=== PATIENT | male | born 1965 | race Hispanic/Latino ===

== ENCOUNTER 2019-04-16 10:39 | Inpatient (IN) | payer OTHER ==
[~2019-04-16] VITALS: Ht 165.1 cm; Wt 79.8 kg
[2019-04-16] MEDS ORDERED: SODIUM CHLORIDE 0.9% 1000ML 1,000 ML IV ONE ×2 (11:06→16:02)
[2019-04-16] MEDS ORDERED: THIAMINE HCL 100 MG/ML 2ML VIAL ONE (11:18)
[2019-04-16 11:28] LABS: BASOPHILS % (AUTO) 0.2 % (0.0-5.0); HEMATOCRIT 44.9 % (42-54); LYMPHOCYTES % (AUTO) 2.9 % (21.0-51.0); MEAN CORPUSCULAR HEMOGLOBIN 34.2 pg (27.0-33.0); MEAN CORPUSCULAR HGB CONC 34.5 g/dL (32.0-36.0); MONOCYTES % (AUTO) 15.7 % (3.0-13.0); NEUTROPHILS % (AUTO) 81.2 % (40.0-77.0); PLATELET COUNT (AUTO) 111 K/uL (130-400); RED BLOOD CELL COUNT(AUTO) 4.54 MIL/uL (4.50-6.20); RED CELL DISTRIBUTION WIDTH 13.7 % (11.0-15.5); WHITE BLOOD COUNT (AUTO) 12.3 K/uL (4.8-10.8)
[2019-04-16 11:52] LABS: ALANINE AMINOTRANSFERASE 71 U/L (12-78); ALBUMIN 3.5 g/dL (3.5-5.0); ALCOHOL, BLOOD < 3 mg/dL (0-10); ASPARTATE AMINOTRANSFERASE 92 U/L (10-37); CARBON DIOXIDE 19 mmol/L (21-32); CREATININE 6.2 mg/dL (0.5-1.5); GLOMERULAR FILTR. RATE CALC 10 mL/min (>60); GLUCOSE,RANDOM 169 mg/dL (70-105); POTASSIUM 3.2 mmol/L (3.5-5.1); SODIUM SERUM 123 mmol/L (136-145); TOTAL PROTEIN, SERUM 8.3 g/dL (6.0-8.3); UREA NITROGEN, BLOOD 70 mg/dL (7-18)
[2019-04-16 11:54] LABS: CHLORIDE 75 mmol/L (101-111); CREATINE KINASE, TOTAL 737 U/L (21-232)
[2019-04-16 12:57] LABS: APPEARANCE,URINE SL CLOUDY (CLEAR); BILIRUBIN,URINE MODERATE (NEGATIVE); COLOR,URINE YELLOW (YELLOW); GLUCOSE, URINE (UA) NEGATIVE (NEGATIVE); KETONES,URINE 15 mg/dL (NEGATIVE); LEUKOCYTE ESTERASE ,URINE NEGATIVE (NEGATIVE); NITRATE,URINE NEGATIVE (NEGATIVE); OCCULT BLOOD,URINE LARGE (NEGATIVE); PH,URINE 5.5 (5.0-8.0); PROTEIN,URINE 100 mg/dL (NEGATIVE)
[2019-04-16] MEDS ORDERED: POTASSIUM BICARB/CIT AC 25 MEQ TABLET.EFF ONE (12:57)
[2019-04-16 13:05] LABS: AMPHET/METH SCREEN,URINE NEGATIVE (NEGATIVE); BARBITURATE SCREEN, URINE NEGATIVE (NEGATIVE); BENZODIAZEPINES SCREEN,URINE NEGATIVE (NEGATIVE); CANNABINOID SCREEN,URINE NEGATIVE (NEGATIVE); COCAINE SCREEN,URINE NEGATIVE (NEGATIVE); OPIATE SCREEN,URINE NEGATIVE (NEGATIVE); PHENCYCLIDINE SCREEN,URINE NEGATIVE (NEGATIVE)
[2019-04-16 13:19] LABS: BACTERIA,URINE Moderate /HPF (None Seen); MUCUS,URINE Moderate LPF (None Seen); SQUAMOUS EPITHELIAL CELL,UR Few /HPF (0-2)
[2019-04-16] MEDS ORDERED: SODIUM CHLORIDE 0.9% 1000ML 1,000 ML IV SCH (14:16)
[2019-04-16] MEDS ORDERED: ACETAMINOPHEN 325 MG TAB PO PRN ×2 (14:30)
[2019-04-16] MEDS ORDERED: HYDRALAZINE HCL 20 MG/ML VIAL IV PRN (14:30)
[2019-04-16] MEDS ORDERED: ONDANSETRON HCL 4 MG/2 ML VIAL IV PRN (14:30)
[2019-04-16] MEDS ORDERED: PHARMACY COMMUNICATION MISC PRN (14:30)
[2019-04-16 14:53] LABS: MAGNESIUM 2.6 mg/dL (1.80-2.40); PHOSPHORUS 7.6 mg/dL (2.5-4.9)
[2019-04-16] MEDS ORDERED: POTASSIUM CHLORIDE 10MEQ/100ML 100 ML IV PRN (18:00)
[2019-04-16] MEDS ORDERED: POTASSIUM CHLORIDE 10% ELIXIR 20 MEQ/15 ML UDCUP PO PRN (18:00)
[2019-04-16] MEDS ORDERED: POTASSIUM CHLORIDE 20 MEQ ERTAB PO PRN (18:00)
[2019-04-16] MEDS ORDERED: LIDOCAINE HCL-MPF 1% 2ML VIAL IVP PRN (18:00)
[2019-04-16] MEDS ORDERED: POTASSIUM CHLORIDE 20 MEQ ERTAB PO ONE (18:15)
[2019-04-16] MEDS ORDERED: FAMOTIDINE/PF 20 MG/2 ML VIAL IV ONE (20:16)
[2019-04-16] MEDS ORDERED: POTASSIUM CHLORIDE 10% ELIXIR 20 MEQ/15 ML UDCUP ONE ×2 (20:16→23:06)
[2019-04-16] MEDS ORDERED: ONDANSETRON HCL 4 MG/2 ML VIAL ONE (20:25)
[2019-04-16 22:16] LABS: INR 1.17 (0.85-1.15); PROTHROMBIN TIME 12.2 SEC (9.6-11.6)
[2019-04-17] VITALS (7 sets, daily range): BP systolic 100–128; BP diastolic 70–96
[2019-04-17] MEDS: CHLORDIAZEPOXIDE HCL 25 MG CAP PO PRN (01:30)
[2019-04-17] MEDS: LORAZEPAM 2 MG/ML 1 ML VIAL IVP PRN ×3 (01:37→10:52)
--- NOTE | 2019-04-17 01:37 | NUR ---
UNABLE TO SWALLOW PILLS ADMINISTERED LIBRIUM PER MAR. PATIENT CHEWING ON PILL, UNABLE TO SWALLOW PILL. HAD PATIENT SPIT PILL OUT, ADMINISTERED ATIVAN PER MAR. REINFORCED SAFETY MEASURES TO USE CALL LIGHT AND NOT TO GET OUT OF BED. BED ALARM ON, BED LOCKED IN LOWEST POSITION, CALL LIGHT WITHIN REACH.
[2019-04-17 05:51] LABS: BASOPHILS % (AUTO) 0.2 % (0.0-5.0); EOSINOPHILS % (AUTO) 0.1 % (0.0-8.0); HEMATOCRIT 38.2 % (42-54); LYMPHOCYTES % (AUTO) 2.1 % (21.0-51.0); MEAN CORPUSCULAR HEMOGLOBIN 35.2 pg (27.0-33.0); MEAN CORPUSCULAR HGB CONC 35.2 g/dL (32.0-36.0); MONOCYTES % (AUTO) 17.2 % (3.0-13.0); NEUTROPHILS % (AUTO) 80.4 % (40.0-77.0); PLATELET COUNT (AUTO) 98 K/uL (130-400); RED BLOOD CELL COUNT(AUTO) 3.82 MIL/uL (4.50-6.20); RED CELL DISTRIBUTION WIDTH 13.3 % (11.0-15.5); WHITE BLOOD COUNT (AUTO) 10.2 K/uL (4.8-10.8)
[2019-04-17 06:04] LABS: CREATININE 1.9 mg/dL (0.5-1.5); MAGNESIUM 2.2 mg/dL (1.80-2.40); PHOSPHORUS 2.7 mg/dL (2.5-4.9); POTASSIUM 3.2 mmol/L (3.5-5.1)
--- NOTE | 2019-04-17 07:20 | NUR ---
PATIENT OBSERVED VERY LETHARGIC DURING BEDSIDE REPORTING, UNABLE TO ANSWER QUESTIONS AT THIS TIME. REPORT RECEIVED THAT THE PATIENT HAD EMESIS EPISODES EARLIER. CURRENTLY ON ALCOHOL WITHDRAWAL. WILL CONTINUE TO MONITOR.
[2019-04-17] MEDS: THIAMINE HCL 100 MG TABLET PO SCH (09:30)
[2019-04-17] MEDS: FOLIC ACID 1 MG TABLET PO SCH (09:30)
[2019-04-17] MEDS: FAMOTIDINE/PF 20 MG/2 ML VIAL IV SCH (10:23)
--- NOTE | 2019-04-17 10:55 | NUR ---
PATIENT HAD ANOTHER EMESIS EPISODE AND WAS COVERED WITH ZOFRAN AND WAS STILL VOMITING WHILE RECEIVING THE MEDICATION. DR ORDONEZ WAS MADE AWARE OF THE PATIENT CURRENT STATUS. AM PO MEDS WERE HELD AND WAS NOTIFIED, CURRENTLY ON BANANA BAG. ADDED POTASSIUM TO THE IVF TO COVER LOW POTASSIUM.
--- NOTE | 2019-04-17 10:56 | NUR ---
PATIENT WAS MEDICATED WITH ATIVAN FOR ALCOHOL WITHDRAWAL. HALLUCINATING WITH TREMORS PRESENT; ATTEMPTING TO GET UP.
[2019-04-17] MEDS: THIAMINE HCL 100 MG, FOLIC ACID 1 MG, M.V.I. IV [ADULT] 10 ML in SODIUM CHLORIDE 0.9% 1... IV SCH ×2 (11:38→14:30)
[2019-04-17 12:07] LABS: ABG BASE EXCESS -1.5 mmol/L (-2.0-3.0); ABG OXYGEN SATURATION 97.5 % (95.0-99.0); ABG PCO2 30 mmHg (35-48)
--- NOTE | 2019-04-17 12:54 | NUR ---
Nutrition intervention: Nutrition consult as trigger. Pt admitted for alcohol intoxication, severe hyponatremia. Pt currently on full liquid diet with no po intake. As per ELLA Mazariegos, pt lethargic. Pt asleep at time of RD visit. No nutrition feedback obtained by pt. Will continue to monitor. Recommendations: Continue thiamin and folic acid When medically feasible, advance diet therapy to Soft diet therapy. Monitor po intake and tolerance. Consult RD as nutrition concerns arise. Addendum: 04/17/19 at [address] RD Amended: Links added.
--- NOTE | 2019-04-17 12:55 | NUR ---
RETURNED FROM CT SCAN CALM WITH EYES CLOSED.
[2019-04-17] MEDS: NS-20 MEQ KCL 1000ML 1,000 ML IV SCH (13:05)
--- NOTE | 2019-04-17 16:00 | NUR ---
INITIAL MET W PATIENT , AUNT AND COUSIN AT BEDSIDE, COUSIN SEBASTIÁN PATE SUPPLIED MOST INFO, PT IS CONSULTS, COUSIN SUPPLIED THAT PT LIVES ALONE, MOTHER SOME YEARS AGO, LIVES IN HOUSE, HAS CARE HOME CHECK, DRINKS HEAVILY, STEEP DECLINE IN LAST FEW YEARS NO PHONE,LOST ID, HOME IN [place], WHEN QUESTIONED PT STATES WAS PT OF [facility] AND HAD INSURANCE. PT DID REMEMBER HIS SOCIAL SECURITY NUMBER CALL TO [facility] PENDING TO CHECK I DC PLAN UNDETERMINED Addendum: 04/18/19 at 1548 by HELENE DE JESUS RN CM Amended: Links added.
--- NOTE | 2019-04-17 17:05 | NUR ---
PATIENT'S COUSIN CAME IN TO VISIT HIM AND PROVIDED HIS CONTACT INFORMATION. PATIENT HAD LITTLE IMPROVEMENT AND WAS ABLE TO STATE HIS NAME ONLY.
[2019-04-17 17:30] LABS: ALBUMIN 2.8 g/dL (3.5-5.0); BILIRUBIN,TOTAL 3.7 mg/dL (0.2-1.0); CREATININE 1.2 mg/dL (0.5-1.5); POTASSIUM 3.1 mmol/L (3.5-5.1); TOTAL PROTEIN, SERUM 6.8 g/dL (6.0-8.3)
[2019-04-17 18:29] LABS: CREATININE,URINE RANDOM 76 mg/dL (30-135); SODIUM,URINE RANDOM < 15 mmol/l (40-220)
[2019-04-18] VITALS (11 sets, daily range): BP systolic 0–147; BP diastolic 0–97
[2019-04-18] MEDS: NS-20 MEQ KCL 1000ML 1,000 ML IV SCH ×2 (01:50→01:51)
[2019-04-18 04:49] LABS: BASOPHILS % (AUTO) 0.3 % (0.0-5.0); EOSINOPHILS % (AUTO) 0.1 % (0.0-8.0); HEMATOCRIT 38.5 % (42-54); LYMPHOCYTES % (AUTO) 5.3 % (21.0-51.0); MEAN CORPUSCULAR HEMOGLOBIN 35.1 pg (27.0-33.0); MEAN CORPUSCULAR HGB CONC 34.5 g/dL (32.0-36.0); MEAN CORPUSCULAR VOLUME 101.7 fL (79-99); MONOCYTES % (AUTO) 27.8 % (3.0-13.0); NEUTROPHILS % (AUTO) 66.5 % (40.0-77.0); PLATELET COUNT (AUTO) 121 K/uL (130-400); RED BLOOD CELL COUNT(AUTO) 3.79 MIL/uL (4.50-6.20); RED CELL DISTRIBUTION WIDTH 13.4 % (11.0-15.5); WHITE BLOOD COUNT (AUTO) 9.7 K/uL (4.8-10.8)
[2019-04-18 05:00] LABS: INR 1.13 (0.85-1.15); PARTIAL THROMBOPLASTIN TIME 33.2 SEC (26.3-35.5); PROTHROMBIN TIME 11.8 SEC (9.6-11.6)
[2019-04-18 05:16] LABS: ALBUMIN 2.6 g/dL (3.5-5.0); BILIRUBIN,DIRECT 2.3 mg/dL (0.0-0.3); BILIRUBIN,TOTAL 3.4 mg/dL (0.2-1.0); MAGNESIUM 2.4 mg/dL (1.80-2.40); PHOSPHORUS 1.5 mg/dL (2.5-4.9); TOTAL PROTEIN, SERUM 6.6 g/dL (6.0-8.3)
[2019-04-18 05:26] LABS: POTASSIUM 2.9 mmol/L (3.5-5.1)
[2019-04-18 07:14] LABS: HEPATITIS Bs ANTIGEN SCREEN P Negative (Negative)
[2019-04-18] MEDS ORDERED: THIAMINE HCL 100 MG TABLET PO SCH (09:00)
[2019-04-18] MEDS ORDERED: FOLIC ACID 1 MG TABLET PO SCH (09:00)
[2019-04-18] MEDS: THIAMINE HCL 100 MG TABLET PO SCH (09:15)
[2019-04-18] MEDS: FOLIC ACID 1 MG TABLET PO SCH (09:16)
[2019-04-18] MEDS ORDERED: POTASSIUM PHOS 15 mMOL+NS250ML 250 ML IV PRN (10:00)
[2019-04-18] MEDS: FAMOTIDINE/PF 20 MG/2 ML VIAL IV SCH (10:09)
[2019-04-18] MEDS: CHLORDIAZEPOXIDE HCL 25 MG CAP PO PRN (10:09)
[2019-04-18] MEDS ORDERED: LIDOCAINE HCL-MPF 1% 2ML VIAL IVP PRN ×2 (13:45→15:45)
[2019-04-18] MEDS ORDERED: POTASSIUM CHLORIDE 10% ELIXIR 20 MEQ/15 ML UDCUP PO PRN (13:45)
[2019-04-18] MEDS ORDERED: POTASSIUM CHLORIDE 20 MEQ ERTAB PO PRN (13:45)
[2019-04-18] MEDS ORDERED: POTASSIUM CHLORIDE 20MEQ/100ML 100 ML IV PRN (13:45)
[2019-04-18] MEDS ORDERED: PHARMACY COMMUNICATION MISC SCH (14:30)
--- NOTE | 2019-04-18 15:00 | NUR ---
ATTEMPT TO REACH FAMILY MEMBERS CALL TO SEBASTIÁN GOLDMAN AT 1440 [phone] MARCO A SCALES TO FAYE PERERA SISTERAT [phone] LEFT VOICE MAIL, PHONE OFF SEBASTIÁN PATE PICKED UP, HE IS AT WORK, ADVISED HIM THAT HIS COUSIN HAS TAKEN A TURN FOR THE WORSE, SPOKE TO DR. LLOYD WHO EXPLAINED THAT WE ARE CODING PATIENT HE STATES HE CAN BE THERE AFTER 5 PM CALL BACK TO JONES AT 1450, DR. Ibarra ASKED ABOUT DNR, COUSIN DECLINED, CHRISTINA EXPLAINED THAT DAWOOD SHELBY IS IN [place], THAT IS WHY THE PHONE IS OFF. HE WILL BE COMING TO [facility] WHEN HE GETS OUT OF WORK Addendum: 04/18/19 at 1540 by HELENE DE JESUS RN CM Amended: Links added.
[2019-04-18 15:08] LABS: ABG BASE EXCESS -18.6 mmol/L (-2.0-3.0); ABG HCO3 15.1 mmol/L (21.0-28.0); ABG OXYGEN SATURATION 50.5 % (95.0-99.0); ABG PCO2 76 mmHg (35-48)
[2019-04-18] MEDS ORDERED: SODIUM CHLORIDE 0.9% 1000ML 1,000 ML IV ONE (15:12)
--- NOTE | 2019-04-18 15:32 | NUR ---
TRANSFER TO ICU Patient was seen at 1315 for CIWA assessment. Subsequently a code was called S/T patient with telemetry changes. Coded and transfer to ICU.
[2019-04-18 15:33] LABS: BILIRUBIN,TOTAL 2.5 mg/dL (0.2-1.0); CREATININE 1.6 mg/dL (0.5-1.5); TOTAL PROTEIN, SERUM 5.5 g/dL (6.0-8.3)
[2019-04-18 15:48] LABS: BASOPHILS % (AUTO) 0.4 % (0.0-5.0); EOSINOPHILS % (AUTO) 0.3 % (0.0-8.0); HEMATOCRIT 40.9 % (42-54); LYMPHOCYTES % (AUTO) 13.7 % (21.0-51.0); MEAN CORPUSCULAR HEMOGLOBIN 34.5 pg (27.0-33.0); MEAN CORPUSCULAR HGB CONC 31.7 g/dL (32.0-36.0); MEAN CORPUSCULAR VOLUME 108.9 fL (79-99); MONOCYTES % (AUTO) 11.3 % (3.0-13.0); NEUTROPHILS % (AUTO) 74.3 % (40.0-77.0); NUCLEATED RED BLOOD CELLS 0.4 % (0.0-0.19); PLATELET COUNT (AUTO) 97 K/uL (130-400); RED BLOOD CELL COUNT(AUTO) 3.75 MIL/uL (4.50-6.20); RED CELL DISTRIBUTION WIDTH 13.9 % (11.0-15.5); WHITE BLOOD COUNT (AUTO) 3.9 K/uL (4.8-10.8)
[2019-04-18] MEDS: POTASSIUM CHLORIDE 20MEQ/100ML 100 ML IV PRN ×2 (15:49→17:52)
[2019-04-18] MEDS ORDERED: PROPOFOL 1000 MG/100 ML IV PRN (16:15)
[2019-04-18 16:18] LABS: ABG BASE EXCESS -12.5 mmol/L (-2.0-3.0); ABG OXYGEN SATURATION 99.6 % (95.0-99.0); ABG PCO2 35 mmHg (35-48)
[2019-04-18] MEDS ORDERED: NOREPINEPHRINE 4MG/NS 250ML 250 ML IV SCH (16:32)
[2019-04-18] MEDS ORDERED: SODIUM BICARB 50MEQ 50ML VIAL IV STA (16:50)
[2019-04-18] MEDS ORDERED: ALBUMIN (HUMAN) 5% 250 ML IV STA (16:50)
[2019-04-18] MEDS ORDERED: SODIUM BICARB 50MEQ 50ML VIAL ONE (16:51)
[2019-04-18] MEDS ORDERED: ALBUMIN (HUMAN) 25% 100 ML IV SCH (17:30)
[2019-04-18] MEDS ORDERED: VASOPRESSIN 20 UNITS in DEXTROSE 5%-WATER 50 ML IV STA (17:36)
[2019-04-18] MEDS ORDERED: SODIUM BICARB 8.4% 50ML SYRING 150 MEQ in DEXTROSE 5%-WATER 1,000 ML IV SCH (17:45)
[2019-04-18] MEDS ORDERED: ALBUMIN (HUMAN) 5% 250 ML IV SCH (17:45)
[2019-04-18] MEDS ORDERED: CALCIUM CHLORIDE 100 MG/ML 10 ML SYG IVP ONE (17:45)
[2019-04-18] MEDS ORDERED: MAGNESIUM SULFATE 1 GM/2 ML VIAL IM ONE (17:45)
[2019-04-18] MEDS ORDERED: EPINEPHRINE 0.1 MG/ML 10 ML SYG IVP ONE (17:45)
[2019-04-18 17:51] LABS: CREATINE KINASE, TOTAL 141 U/L (21-232); MYOGLOBIN 223 ng/mL (10-92); TROPONIN I < 0.04 ng/mL (0.00-0.06)
[2019-04-18] MEDS: THIAMINE HCL 100 MG, FOLIC ACID 1 MG, M.V.I. IV [ADULT] 10 ML in SODIUM CHLORIDE 0.9% 1... IV SCH (18:02)
== END 2019-04-18 19:05 | disposition expired | DRG 208 ==
LOC: EDH 10:39 → EDHIP 10:40 → 3BH 23:50 → 2BH 04-18 15:24
PROVIDERS: ADMIT Internal Medicine; ATTEND Internal Medicine
PROC: 0BH17EZ Insertion of Endotracheal Airway into Trachea, Via Natural or Artificial Opening (ICD-10-PCS; principal; 2019-04-18)
PROC: 5A1935Z Respiratory Ventilation, Less than 24 Consecutive Hours (ICD-10-PCS; 2019-04-18)
PROC: 5A12012 Performance of Cardiac Output, Single, Manual (ICD-10-PCS; 2019-04-18)
PROC: 06HM33Z Insertion of Infusion Device into Right Femoral Vein, Percutaneous Approach (ICD-10-PCS; 2019-04-18)
DX: J96.00 Acute respiratory failure, unspecified whether with hypoxia or hypercapnia (principal); E87.1 Hypo-osmolality and hyponatremia; F10.231 Alcohol dependence with withdrawal delirium; N17.9 Acute kidney failure, unspecified; E11.9 Type 2 diabetes mellitus without complications; E86.9 Volume depletion, unspecified; E87.6 Hypokalemia; E87.8 Other disorders of electrolyte and fluid balance, not elsewhere classified; G47.10 Hypersomnia, unspecified; I10 Essential (primary) hypertension; I46.9 Cardiac arrest, cause unspecified; I49.01 Ventricular fibrillation; K72.90 Hepatic failure, unspecified without coma; K74.60 Unspecified cirrhosis of liver; R29.6 Repeated falls; W19.XXXA Unspecified fall, initial encounter; Z66 Do not resuscitate; Z63.8 Other specified problems related to primary support group; Y93.89 Activity, other specified; Y92.89 Other specified places as the place of occurrence of the external cause; Y99.8 Other external cause status
CPT/HCPCS: 31500; 36415; 36600; 70450; 71045; 73080; 76770; 80048; 80053; 80076; 80305; 81001; 82140; 82435; 82550; 82570; 82803; 82947; 83605; 83735; 83874; 83935; 84100; 84132; 84295; 84300; 84484; 85018; 85025; 85610; 85730; 86255; 86701; 87340; 87390; 87520; 92950; 93005; 94002; 99291; A4344; C1751; G0378; G0480; J0171; J2060; J2405; J3411; J3475; J3480; J3490; J7030; J7060; J7070; P9045